=== PATIENT | male | born 1980 | race Native Hawaiian/Other Pacific Islander ===

== ENCOUNTER 2017-07-02 09:28 | Emergency (ER) | payer OTHER ==
[~2017-07-02] VITALS: Ht 185.4 cm; Wt 77.1 kg
[2017-07-02 09:32] VITALS: TEMP 97.8
[2017-07-02 09:59] LABS: PLATELET COUNT 266 K/uL (142-355)
[2017-07-02 12:10] VITALS: BP 1353/90
== END 2017-07-02 12:31 | disposition home or self-care (01) ==
LOC: ED 09:28
DX: N45.1 Epididymitis (principal); N50.812 Left testicular pain; N50.811 Right testicular pain; X50.9XXA Other and unspecified overexertion or strenuous movements or postures, initial encounter
CPT/HCPCS: 36415; 81000; 85027; 96374; 96375; 99284; J1885; J2175; J2405

== ENCOUNTER 2017-10-06 18:17 | Emergency (ER) | payer OTHER ==
[~2017-10-06] VITALS: Ht 180.3 cm; Wt 77.1 kg
[2017-10-06 18:20] VITALS: BP 161/91; TEMP 98.2
[2017-10-06 20:21] LABS: PLATELET COUNT 246 K/uL (142-355)
== END 2017-10-06 20:37 | disposition home or self-care (01) ==
LOC: ED 18:17
PROVIDERS: Specialist
DX: M79.645 Pain in left finger(s) (principal)
CPT/HCPCS: 36415; 80048; 85027; 85651; 99283